=== PATIENT | female | born 1965 | race Two or more races ===

== ENCOUNTER 2022-03-21 05:53 | Day surgery (SDC) | payer OTHER ==
[~2022-03-21] VITALS: Ht 149.9 cm; Wt 79.4 kg
[~2022-03-21 05:53] MED LIST: AMITRIPTYLINE H50 MG PO; BUSPAR PO; CLONAZEPAM0.5 MG PO; GABAPENTIN100 M2 PO; PAROXETINE CR25 MG PO; SYNTHROID100 MCG PO
== END 2022-03-21 10:35 | disposition home or self-care (01) ==
LOC: CIR.AMB 05:53
PROVIDERS: ATTEND Orthopaedic Surgery
DX: M77.11 Lateral epicondylitis, right elbow (principal); Z20.822 Contact with and (suspected) exposure to COVID-19; G62.9 Polyneuropathy, unspecified; M79.7 Fibromyalgia; F41.9 Anxiety disorder, unspecified; Z85.9 Personal history of malignant neoplasm, unspecified; E07.9 Disorder of thyroid, unspecified; E66.9 Obesity, unspecified